=== PATIENT | male | born 1965 | race Two or more races ===

== ENCOUNTER → 2022-07-07 08:24 | Outpatient (CLI) | payer OTHER | END | disposition home or self-care (01) | LOC: LAB 08:24 | PROVIDERS: ATTEND Internal Medicine | DX: E11.9 Type 2 diabetes mellitus without complications (principal); I10 Essential (primary) hypertension; E03.9 Hypothyroidism, unspecified; E78.2 Mixed hyperlipidemia ==

== ENCOUNTER 2022-08-17 11:28 | Outpatient (CLI) | payer OTHER | END 2022-08-17 11:35 | disposition home or self-care (01) | LOC: SONOGRAMA 11:28 | DX: D49.2 Neoplasm of unspecified behavior of bone, soft tissue, and skin (principal) ==

== ENCOUNTER 2022-10-12 07:42 | Outpatient (CLI) | payer OTHER | END 2022-10-12 07:51 | disposition home or self-care (01) | LOC: RAD 07:42 | DX: M19.071 Primary osteoarthritis, right ankle and foot (principal) ==

== ENCOUNTER 2022-10-28 07:02 | Outpatient (CLI) | payer OTHER | END 2022-10-28 07:08 | disposition home or self-care (01) | LOC: LAB 07:02 | PROVIDERS: ATTEND Podiatrist Foot Surgery | DX: K76.9 Liver disease, unspecified (principal) ==

== ENCOUNTER 2022-10-28 08:05 | Outpatient (CLI) | payer OTHER | END 2022-10-28 08:09 | disposition home or self-care (01) | LOC: RAD 08:05 | PROVIDERS: ATTEND Podiatrist Foot Surgery | DX: R05.8 Other specified cough (principal) ==

== ENCOUNTER → 2022-11-05 09:11 | Outpatient (CLI) | payer OTHER | END | disposition home or self-care (01) | LOC: LAB 09:11 | PROVIDERS: ATTEND Internal Medicine | DX: E87.6 Hypokalemia (principal); I16.0 Hypertensive urgency ==

== ENCOUNTER 2022-11-07 07:32 | Outpatient (CLI) | payer OTHER | END 2022-11-07 07:36 | disposition home or self-care (01) | LOC: LAB 07:32 | PROVIDERS: ATTEND Podiatrist Foot Surgery | DX: Z03.818 Encounter for observation for suspected exposure to other biological agents ruled out (principal) ==

== ENCOUNTER 2023-01-12 07:00 | Outpatient (CLI) | payer OTHER | END 2023-01-12 07:04 | disposition home or self-care (01) | LOC: LAB 07:00 | PROVIDERS: ATTEND Internal Medicine | DX: K62.5 Hemorrhage of anus and rectum (principal); E11.9 Type 2 diabetes mellitus without complications; I10 Essential (primary) hypertension; E03.9 Hypothyroidism, unspecified; E78.2 Mixed hyperlipidemia; E55.9 Vitamin D deficiency, unspecified; N40.0 Benign prostatic hyperplasia without lower urinary tract symptoms ==

== ENCOUNTER 2023-01-12 07:48 | Outpatient (CLI) | payer OTHER | END 2023-01-12 07:53 | disposition home or self-care (01) | LOC: SONOGRAMA 07:48 | PROVIDERS: ATTEND Internal Medicine | DX: N18.1 Chronic kidney disease, stage 1 (principal); I16.0 Hypertensive urgency ==

== ENCOUNTER → 2023-01-14 07:41 | Outpatient (CLI) | payer OTHER | END | disposition home or self-care (01) | LOC: LAB 07:41 | PROVIDERS: ATTEND Internal Medicine | DX: K62.5 Hemorrhage of anus and rectum (principal); E11.9 Type 2 diabetes mellitus without complications; E03.9 Hypothyroidism, unspecified; E78.2 Mixed hyperlipidemia; E55.9 Vitamin D deficiency, unspecified; N40.0 Benign prostatic hyperplasia without lower urinary tract symptoms; N18.1 Chronic kidney disease, stage 1 ==

== ENCOUNTER 2023-01-26 07:08 | Outpatient (CLI) | payer OTHER | END 2023-01-26 07:17 | disposition home or self-care (01) | LOC: LAB 07:08 | PROVIDERS: ATTEND Internal Medicine Gastroenterology | DX: K59.09 Other constipation (principal); R12 Heartburn; R19.5 Other fecal abnormalities; Z88.6 Allergy status to analgesic agent ==

== ENCOUNTER 2023-02-02 07:34 | Outpatient (CLI) | payer OTHER | END 2023-02-02 07:45 | disposition home or self-care (01) | LOC: RX STUDY 07:34 | PROVIDERS: ATTEND Internal Medicine Gastroenterology | DX: K59.09 Other constipation (principal); R42 Dizziness and giddiness; R19.5 Other fecal abnormalities; D21.21 Benign neoplasm of connective and other soft tissue of right lower limb, including hip ==

== ENCOUNTER 2023-02-23 10:19 | Outpatient (CLI) | payer OTHER | END 2023-02-23 10:49 | disposition home or self-care (01) | LOC: MRI 10:19 | PROVIDERS: ATTEND Podiatrist Foot Surgery | DX: M67.471 Ganglion, right ankle and foot (principal) | CPT/HCPCS: 73721 ==